=== PATIENT | female | born 1985 | race African-American/Black ===

== ENCOUNTER 2018-03-30 23:38 | Emergency (ER) | payer MEDICAID, OTHER ==
[~2018-03-30] VITALS: Ht 167.6 cm; Wt 81.0 kg
[~2018-03-30 23:38] MED LIST: CEPH-569 PO; FERR55TA PO; NITR-87; ONDA4TAB5 PO; PREN-142 PO
[2018-03-31] MEDS ORDERED: HYDROCODONE/ACETAMINOPHEN 5/325MG TABLET PO ONE (00:45)
[2018-03-31 00:49] VITALS: BP 129/81
== END 2018-03-31 01:08 | disposition home or self-care (01) ==
LOC: ER 03-31 00:03
DX: M54.9 Dorsalgia, unspecified (principal); G89.29 Other chronic pain; F41.9 Anxiety disorder, unspecified; J45.909 Unspecified asthma, uncomplicated; Z88.6 Allergy status to analgesic agent; Z87.891 Personal history of nicotine dependence; Z91.013 Allergy to seafood
CPT/HCPCS: 99283; Z7610